=== PATIENT | female | born 2000 ===

== ENCOUNTER 2023-09-15 19:01 | Inpatient (IN) | payer MEDICAID, OTHER, SELFPAY ==
[2023-09-15 16:59] VITALS: BP 135/104
--- NOTE | 2023-09-15 17:06 | ED.GENMED ---
History of Present Illness
General
Chief Complaint: Withdrawal Symptoms
Source: patient
Exam Limitations: none
Time Seen by Provider: 09/15/23 17:02
History of Present Illness
History of Present Illness:
See MDM
Past History
Past History
ED Past Medical History: None
ED Past Surgical History: None
Social History
Tobacco: Non-smoker
Alcohol: None
Drug: Cocaine, Narcotics and IVDA
Phy Exam
Physical Exam
Physical Exam:
See MDM
Scores
Withdrawal Assessment of Alcohol
Withdrawal Assessment Completed?: Yes
Nausea and Vomiting: Intermittent nausea with dry heaves
Tactile Disturbances: Very mild itching, pins and needles, burning or numbness
Tremor: No tremor
Auditory Disturbances: Not present
Paroxysmal Sweats: No sweat visible
Visual Disturbances: Not present
Anxiety: No anxiety, at ease
Headache, Fullness in Head: Very mild
Agitation: Normal activity
Orientation and clouding of sensorium: Oriented and can do serial additions
Total CIWA Score: 6
Alcohol Withdrawal Medication Recommendation: Equal to MSAS Score 0-4. Monitor & re-assess q2hrs, NO MEDICATION NEEDED
Course
Orders/Labs/Results
Orders:
Orders
09/15/23 17:03
Electrocardiogram (*1) Urgent
Reason for Study: Tachycardia
EKG- Treatment ONCE
09/15/23 17:05
0.9% Sodium Chloride 1000 ml [Nss] 1,000 ml IV BOLUS
Lorazepam [Ativan] 2 mg IV NOW STA
Ondansetron Injectable [Zofran] 4 mg IV NOW STA
Test Result ONCE
09/15/23 17:09
Complete Blood Count/With Diff Urgent
Comprehensive Metabolic Panel Urgent
HCG, Serum Qualitative Screen Urgent
09/15/23 18:17
Lorazepam [Ativan] 1 mg PO NOW STA
09/15/23 18:18
Add On- LAB Urgent
Tests Added?: Alcohol
Urine Drug Abuse Screen Urgent
Abnormal Lab Results
09/15/23
17:09
WBC 15.7 H 10^3/uL
(4.8-10.8)
RBC 5.80 H 10^6/uL
(4.20-5.40)
MCV 78.3 L fL
(81.0-99.0)
MCH 26.7 L pg
(27.0-31.0)
RDW 20.1 H %
(11.5-14.5)
Plt Count 618 H 10^3/uL
(130-400)
Abs Immat Gran (auto) 0.1 H 10^3/uL
(0-0.05)
Absolute Neuts (auto) 13.3 H 10^3/uL
(1.4-6.5)
Absolute Monos (auto) 0.8 H 10^3/uL
(0.1-0.6)
Neutrophils % 85.0 H %
(42.2-75.2)
Lymphocytes % 9.2 L %
(20.5-51.1)
Chloride 93 L mmol/L
(98-107)
BUN 33 H mg/dl
(7-17)
Glucose 115 H mg/dl
(70-99)
Calcium 11.6 H mg/dl
(8.4-10.2)
AST 45 H U/L
(14-36)
Total Protein 11.0 H g/dl
(6.3-8.2)
Albumin 5.8 H g/dl
(3.5-5.0)
09/15/23 17:09
09/15/23 17:09
Vital Signs
Initial and Last Documented VS:
Initial Vital Signs
Temp Pulse Resp BP Pulse Ox
99.8 F 135 30 135/104 100
09/15/23 16:59 09/15/23 16:59 09/15/23 16:59 09/15/23 16:59 09/15/23 16:59
Last Documented Vital Signs
Temp Pulse Resp BP Pulse Ox
99.8 F 127 18 122/76 100
09/15/23 16:59 09/15/23 18:04 09/15/23 18:00 09/15/23 18:04 09/15/23 18:04
MDM/Problems Addressed
Differential Diagnosis Includes:
HPI and MDM Narrative:
23-year-old female presenting from [facility] for evaluation of withdrawal symptoms. Patient states she recently used IV heroin and smoked crack and cocaine. Patient also admits to alcohol use but denies any recent alcohol
use. Patient complains of nausea and palpitations. Patient states she has gone through withdrawal before
On arrival, patient appears stoic. She does not show any significant distress but she is tachycardic. She is cachectic and disheveled
Patient given IM Zofran by EMS for nausea. EKG on arrival shows tachycardia with QTc. Will avoid Zofran. Will start with IV fluids hide IV Ativan
Physical exam
General: Sitting in bed and appears comfortable. Disheveled and cachectic
HEENT: protecting airway. Dry mucous membranes
Neck: IV injection sites to base of anterior neck bilaterally. Supple
CV: No evidence of cyanosis. Tachycardic. No murmur auscultated
Resp: No accessory muscle use. Lungs clear
Abd: Non-distended
Extremities: No deformities
Neuro: alert
Psych: Flat affect
Skin: Track cazares noted. No cellulitis noted
Problems Addressed including Acute and Chronic Conditions affecting care:
1. Withdrawal symptoms
Acuity: acute
Prognosis: unstable
Details: Will give IV Ativan
2. Dehydration
Acuity: acute
Prognosis: stable
Details: Will give IV fluids
3. Prolonged QT
Acuity: acute
Prognosis: stable
Details: Will obtain basic blood work and check EKG once tachycardia resolved
Updates
On multiple reassessments, patient continues to lie in bed and seems somewhat stoic. Patient developing intermittent vomiting while in the emergency department. Patient requiring additional doses of Ativan. After IV fluids, patient persistently
tachycardic. Will admit
Differential Diagnosis (but not limited to): Drug withdrawal, dehydration, cachexia
Testing considered: D-dimer but no clinical signs of DVT
Drug therapy (if applicable): OTC meds, please see d/c instruction regarding Rx drugs
Amount and/or Complexity of Data Reviewed
Clinical info obtained from: Patient
External data reviewed: N/A
Labs I independently reviewed (but not limited to): Leukocytosis, likely reactive
Radiology: N/A
Pulse Ox: not hypoxic
EKG independently reviewed: Sinus tachycardia, normal axis, no STEMI
Utilization Manager: sinus tachycardia
Critical Care: N/A
Risk of Complication:
Social Determinants of health: Poor social support
Discussed with other providers: Hospitalist
Escalation of Care includes Admit/Obs: Given the persistent tachycardia and withdrawal symptoms, will admit
Occasional wrong word or 'sound a like' substitutions may have occurred due to the inherent limitations of voice recognition software. Read the chart carefully and recognize, using context, where substitutions have occurred.
*Critical Care Note
Total Time (30-74mins, 75-104mins- exclusive of procedures): Not Applicable
ED Attending Note
-
Portions of this chart may have been created with voice recognition software.� Occasional wrong word or��sound alike� substitutions may have occurred due to the inherent limitations of voice recognition software.
Discharge Plan
Departure
Patient Disposition: Admit
Date of Disposition: 09/15/23
Time of Disposition: 18:20
Admit to: Telemetry
Presentation/result/management discussed w/ accepting MD/DO: Hospitalist
Discharge Problem:
Drug withdrawal, Prolonged QT interval, Chronic malnutrition
Referrals:
[facility] [Family Provider] -
Interventions
Interventions:
*Risk Screen - Suicide Last Done: 09/15/23 16:59
*General Assessment Last Done: 09/15/23 16:59
*Neglect/Abuse Screening Last Done: 09/15/23 16:59
*ED COVID-19 Vaccine History Last Done: 09/15/23 16:59
ED- Neurological Assessment Last Done: 09/15/23 17:27
ED-Psychological Assessment Last Done: 09/15/23 17:27
[2023-09-15] MEDS: NSS 1000 IV ×2 (17:18→20:27)
[2023-09-15] MEDS: ATIVAN 2 MG IV (17:19)
[2023-09-15 17:25] LABS: % Basophils 0.3 % (0-2); % Immature Granulocytes 0.3 % (0-0.5); % Lymphocytes 9.2 % (20.5-51.1); % Monocytes 5.2 % (1.7-9.3); Absolute Immature Granulocytes 0.1 10^3/uL (0-0.05); Absolute Lymphocytes 1.5 10^3/uL (1.2-3.4); Absolute Monocytes 0.8 10^3/uL (0.1-0.6); Absolute Neutrophils 13.3 10^3/uL (1.4-6.5); Hematocrit 45.4 % (37.0-47.0); Hemoglobin 15.5 g/dL (12.0-16.0); Mean Corp Hgb Conc. 34.1 g/dL (33.0-37.0); Mean Corpuscular Hgb 26.7 pg (27.0-31.0); Mean Corpuscular Volume 78.3 fL (81.0-99.0); Nucleated Red Blood Cells % 0 %; Red Cell Dist. Width 20.1 % (11.5-14.5); White Blood Cell Count 15.7 10^3/uL (4.8-10.8)
[2023-09-15 17:35] LABS: HCG, Serum Qualitative Screen Negative
[2023-09-15 17:38] LABS: ALT (SGPT) 26 U/L (0-35); AST (SGOT) 45 U/L (14-36); Albumin 5.8 g/dl (3.5-5.0); Alkaline Phosphatase 100 U/L (38-126); Blood Urea Nitrogen 33 mg/dl (7-17); Calcium 11.6 mg/dl (8.4-10.2); Carbon Dioxide 30 mmol/L (22-30); Chloride 93 mmol/L (98-107); Glucose 115 mg/dl (70-99); Potassium 4.4 mmol/L (3.5-5.1); Sodium 139 mmol/L (135-145); Total Bilirubin 1.1 mg/dl (0.2-1.3); eGFR > 60.00
[2023-09-15 17:42] LABS: Mean Platelet Volume 9.5 fL (7.4-10.4)
[2023-09-15 17:48] LABS: Platelet Count 618 10^3/uL (130-400)
[2023-09-15 18:04] VITALS: BP 122/76
--- NOTE | 2023-09-15 18:25 | PHANOTE ---
med rec note patient new to [facility] and has no medication there, no ecw, no pdmp and pharmacy records
--- NOTE | 2023-09-15 18:42 | HPS.HSE ---
Addendum entered and electronically signed by Bruce New MD 09/16/23 07:48:
I saw and examined the patient.
The FIREWOOD CUTTER's note was reviewed and I agree with the note.
23-year-old female brought by [facility] staff for medical clearance. Patient was just picked up earlier in the day and was felt to having withdrawal symptoms with nausea and vomiting reported. Patient had minimal blood in
the vomitus. During my visit patient awake although clearly under influence of substance. Able to provide history but reliability cannot be sure. Patient does state of using Xylazine/fentanyl/heroin/crack cocaine. Patient uses IV heroin and
injects herself and neck veins. Last dose was 2 days back, urine drug screen is pending at this time. Patient is tachycardic although denies any palpitation/chest pain/shortness of breath.
HEENT: No pallor, cyanosis, or jaundice.
NECK: Supple. No JVD. injection zaheer, no cellulitis/wound
RESPIRATORY: Lungs clear to auscultation.
CVS: S1, S2, tachycardic, no murmur
ABDOMEN: Soft, non-tender. No distension. BS+/normal.
EXTREMITIES: No peripheral cyanosis or edema.
REVENUE INTEGRITY ANALYST: Alert, oriented. No focal deficits.
Multiple substance abuse -Xylazine/fentanyl/heroin/cocaine
IV herion use
- start on COWS protocol with buprenorphine dosing per protocol
- prn ativan per anxiety
- Prolonged QTc cannot use Zanaflex use clonidine
- admit to IMU
Sinus tachycardia
Prolonged QTc
-Avoid any QTc prolonging medication
-Maintain on IV fluid
-Tachycardia likely related from drug withdrawal
Nausea/vomiting
-Minimal blood reported in vomitus and may have minor Carisa-García tear
-Monitor hemoglobin
-Tigan as needed for nausea vomiting (prolonged QTc)
-Clear liquid diet for tonight
Full code
Original Note:
Family Physician
-
Family Physician: Facility [facility]
Chief Complaint
-
Withdrawal
History of Present Illness
Patient is a 23-year-old female with [facility] with concern for withdrawal symptoms. She was just picked up off the streets earlier today. Nurse was evaluating her for intake and noted significant withdrawal symptoms which
prompted them to bring her to the emergency department for evaluation. Patient admits to nausea and palpitations. She admits to using multiple recreational drugs including IV heroin/fentanyl, and smoking crack cocaine. Denies any prior history of
withdrawal seizure.
Medical History
Past Medical History
Past Medical History: Reports Other
Additional Past Medical History:
Substance Abuse Disorder
Past Surgical History: Reports None
Social History
Tobacco: Non-smoker
Alcohol: None
Drug: Cocaine, Narcotics and IVDA
Family History
Family History: Unable to Obtain
Allergies / Home Medications
Allergies reflects when Allergies were last updated in [facility].
Home Medications with original date entered in [facility]
Allergy/Medication List:
Allergies
Allergy/AdvReac Type Severity Reaction Status Date / Time
sulfamethoxazole Allergy Unknown Verified 09/15/23 16:59
[From Bactrim]
trimethoprim [From Bactrim] Allergy Unknown Verified 09/15/23 16:59
Home Medications
No Meds [No Current Medications] 09/15/23
Review of Systems
-
Unable to obtain full review of systems at this time due to: Acuity
Constitutional: Denies Fever
Respiratory: Denies Cough or Trouble Breathing
Cardiac: Denies Chest Pain or Palpitations
Abdomen/GI: Reports Nausea; Denies Abdominal Pain
Physical Exam
Vital Signs
Vital Signs
Temp Pulse Resp BP Pulse Ox
99.8 F 135 19 122/76 100
09/15/23 16:59 09/15/23 18:30 09/15/23 18:30 09/15/23 18:04 09/15/23 18:04
Physical Exam
General: Cachectic and Other (Appears disheveled )
HEENT: NormoCephalic, Anicteric, Atraumatic and Other (Slightly dry mucous membranes)
Respiratory: Clear and Non Labored Respirations
Cardiac: S1/S2, Regular Rhythm and Tachycardia; No Murmur
GI: Soft and Non Tender
Rectal: Deferred by Provider
Skin: Warm, Dry and Other (Injection sites evidence bilateral neck )
Neuro: Awake, Alert and Nonfocal/grossly intact
Psych: Other (Flat Affect, only minimally interactive)
Laboratory Results
-
09/15/23 17:09
09/15/23 17:09
Laboratory Results
Total Bilirubin 1.1 mg/dl (0.2-1.3) 09/15/23 17:09
AST 45 U/L (14-36) H 09/15/23 17:09
ALT 26 U/L (0-35) 09/15/23 17:09
Alkaline Phosphatase 100 U/L (38-126) 09/15/23 17:09
Data Reviewed
-
Lab Data: Labs Reviewed by me
Impression/Plan
-
Poly-Substance Abuse with Withdrawal
-Patient reports last usages of illicit drugs two days ago
-Await urine drug screen
-Continue opioid withdrawal protocol
-Continue Ativan prn
-Allow clear liquids
Prolonged QT
-Avoid QTC prolonging medication
-Check ECG Daily
Tachycardia, likely related to volume depletion
-Continue IVFs
Malnutrition
-Consult Dietary
DVT proph: Lovenox
Code Status: Full Code
[2023-09-15 19:31] LABS: Alcohol None Detected
[2023-09-15 19:40] LABS: Magnesium 2.5 mg/dl (1.6-2.3)
[2023-09-15 19:42] LABS: Alcohol None Detected
[2023-09-15 19:49] VITALS: BMI 16.6
[2023-09-15 20:00] VITALS: BP 149/91
[2023-09-15] MEDS: TYLENOL 650 MG PO (20:38)
[2023-09-15] MEDS: SUBUTEX 8 MG SL ×2 (20:40→21:53)
[2023-09-15 22:00] VITALS: BP 148/85
--- NOTE | 2023-09-15 22:00 | PTCARENOTE ---
Pt admitted to IMU. AAOx3, restless, anxious, forgetful at times and uncooperative.Periods of drowsiness Febrile. COW score 17. Pt was given Tylenol PO. ST w/ prolong Qt in the monitor. Lung sounds are diminished at the bases, Sao2 98% RA.
tachypneic and occasional nonproductive dry cough. Nausea and vomit ~ [address] NPO. High risk of aspiration. Will cont w/ tx plan.
[2023-09-15 23:19] VITALS: BP 146/91
[2023-09-15] MEDS: CATAPRES 0.100000000000000006 MG PO (23:20)
[2023-09-16] VITALS (12 sets, daily range): BP systolic 129–148; BP diastolic 79–101; BMI 16.6
[2023-09-16] MEDS: NSS (PRESERVATIVE FREE) 0.5 ML IV ×2 (00:30→05:45)
[2023-09-16] MEDS: ATIVAN 1 MG IV ×3 (00:30→22:15)
[2023-09-16 04:23] LABS: Hematocrit 38.1 % (37.0-47.0); Hemoglobin 12.7 g/dL (12.0-16.0); Mean Corp Hgb Conc. 33.3 g/dL (33.0-37.0); Mean Corpuscular Hgb 26.3 pg (27.0-31.0); Mean Corpuscular Volume 78.9 fL (81.0-99.0); Mean Platelet Volume 9.6 fL (7.4-10.4); Platelet Count 446 10^3/uL (130-400); Red Blood Cell Count 4.83 10^6/uL (4.20-5.40); Red Cell Dist. Width 19.5 % (11.5-14.5); White Blood Cell Count 10.6 10^3/uL (4.8-10.8)
[2023-09-16 05:21] LABS: ALT (SGPT) 21 U/L (0-35); AST (SGOT) 38 U/L (14-36); Albumin 4.8 g/dl (3.5-5.0); Alkaline Phosphatase 78 U/L (38-126); Blood Urea Nitrogen 29 mg/dl (7-17); Calcium 9.6 mg/dl (8.4-10.2); Carbon Dioxide 25 mmol/L (22-30); Chloride 100 mmol/L (98-107); Direct Bilirubin 0.2 mg/dl (0.0-0.4); Estimated Creatinine Clearance 93 ml/min; Glucose 89 mg/dl (70-99); Magnesium 2.3 mg/dl (1.6-2.3); Potassium 3.8 mmol/L (3.5-5.1); Sodium 136 mmol/L (135-145); Total Bilirubin 1.2 mg/dl (0.2-1.3); Total Protein 8.3 g/dl (6.3-8.2); eGFR > 60.00
[2023-09-16 05:41] LABS: Fentanyl, Urine Positive (Negative)
[2023-09-16] MEDS: NSS 1000 IV ×2 (05:46→18:03)
[2023-09-16] MEDS: CATAPRES 0.100000000000000006 MG PO ×3 (05:46→18:03)
[2023-09-16 05:58] LABS: Amphetamines Negative (Negative); Barbiturates Negative (Negative); Benzodiazepines Positive (Negative); Buprenorphine Positive (Negative); Cocaine Positive (Negative); Methadone Negative (Negative); Methamphetamines Negative (Negative); Opiates Positive (Negative)
[2023-09-16 05:59] LABS: Marijuana Negative (Negative); Phencyclidine Negative (Negative); Tricyclic Antidepressants Negative (Negative)
--- NOTE | 2023-09-16 08:59 | W.PN.HOSP.TC ---
Today's Communication/Plan
-
see note
Assessment / Plan
Assessment / Plan
Multiple substance abuse -Xylazine/fentanyl/heroin/cocaine
IV heroin use
-Urine drug screen positive for opiates/cocaine/fentanyl. Alcohol negative.
-start on COWS protocol with buprenorphine dosing per protocol
-prn ativan per anxiety
-Prolonged QTc cannot use Zanaflex. use clonidine
-COWS protocol reviewed overnight and remains high score of 14-17 range.
Sinus tachycardia
Prolonged QTc - resolved
-QTc was came down to 436 ms
-Avoid any QTc prolonging medication
-Maintain on IV fluid
-Tachycardia likely related from drug withdrawal
Nausea/vomiting -resolved
-Minimal blood reported in vomitus and may have minor Carisa-García tear
-Tigan as needed for nausea vomiting (prolonged QTc)
-Advance to regular diet
Leukocytosis
Thrombocytosis
Elevated total protein
Hypercalcemia
-Component of volume concentration, improved after IV fluid resuscitation
DVT prophylaxis -Lovenox
Full code
Ongoing drug withdrawal, continue monitoring in IMU for another 24 hours.
Time spent : 53 mins
Anticipated Discharge: Within 24 hours
Subjective/Interval History
-
Date of Service: September 16, 2023
Resting comfortably in bed
Denies having any issues overnight
No nausea or vomiting
Objective Data
-
Labs:
Laboratory Results
09/16/23
04:04
WBC 10.6
Hgb 12.7
Hct 38.1
Plt Count 446 H D
Sodium 136
Potassium 3.8
Chloride 100
Carbon Dioxide 25
BUN 29 H
Creatinine 0.6
Glucose 89
Calcium 9.6 D
Total Bilirubin 1.2
AST 38 H
ALT 21
Alkaline Phosphatase 78
Vital Signs:
Vital Signs
Temp Pulse Resp BP Pulse Ox
98.6 F 120 26 129/98 96
09/16/23 07:45 09/16/23 05:46 09/16/23 05:42 09/16/23 05:46 09/16/23 05:42
I&O
09/15/23 09/16/23 09/17/23
06:59 06:59 06:59
Intake Total 1580 / 1580
Balance 1580 / 1580
Review of Systems
-
Respiratory: Reports No Symptoms
Cardiac: Reports No Symptoms
Abdomen/GI: Reports No Symptoms
Physical Exam
-
General: Cachectic; Negative Appears in Distress
HEENT: Negative Oxygen
Neuro: Awake, Alert and Oriented
--- NOTE | 2023-09-16 10:11 | CM ---
CM reviewed medical records. Patient from [facility] and is currently in custody. Plan to return to [facility] on discharge.
PLAN: [facility].
[2023-09-16] MEDS: SUBUTEX 16 MG SL (10:53)
--- NOTE | 2023-09-16 14:41 | PTCARENOTE ---
Rec'd pt this AM. Reports improvement to her w/d symptoms. Ambulated to bathroom and voided large amt of yellow urine. resting comfortably at this time. Ate 100% of lunch, no nausea or vomitting.
[2023-09-16] MEDS: LOVENOX 40 MG SC (18:03)
[2023-09-17] VITALS: BP 125/81
[2023-09-17] MEDS: CATAPRES 0.100000000000000006 MG PO ×2 (00:33→05:24)
[2023-09-17 02:00] VITALS: BP 117/91
[2023-09-17 04:00] VITALS: BP 134/82
[2023-09-17] MEDS: NSS 1000 IV (05:24)
[2023-09-17 06:00] VITALS: BP 127/86
[2023-09-17] MEDS: ATIVAN 1 MG IV ×2 (06:01→10:02)
[2023-09-17 06:10] LABS: Urine Albumin Negative (Neg - Trace); Urine Bilirubin Negative (Negative); Urine Character Slightly Cloudy (Clear); Urine Color Yellow; Urine Glucose Negative (Negative); Urine Ketone Negative (Negative); Urine Leukocyte 2+ (Negative); Urine Nitrite Negative (Negative); Urine Occult Blood Negative (Negative); Urine Urobilinogen Negative (Neg - 1+)
[2023-09-17 06:21] LABS: Urine Squamous Cell >30 /LPF (Few)
[2023-09-17 06:37] LABS: Urine Bacteria Many (Negative); Urine White Cell 60-70 /HPF (0-5)
[2023-09-17 08:00] VITALS: BP 118/79
--- NOTE | 2023-09-17 09:02 | PTCARENOTE ---
Pt with + MRSA screen in nares. Isolation changed to Contact. Notified Dr. Brannon via TT
[2023-09-17] MEDS: SUBUTEX 16 MG SL (09:42)
--- NOTE | 2023-09-17 09:51 | W.PN.HOSP.TC ---
Today's Communication/Plan
-
d/c
Assessment / Plan
Assessment / Plan
pt is a 23 year old female
Multiple substance abuse--Xylazine/fentanyl/heroin/cocaine--IV heroin use--stable for d/c back to senior care-- on all oral meds--Urine drug screen positive for opiates/cocaine/fentanyl-- Alcohol negative---on COWS protocol with buprenorphine dosing per
protocol--prn ativan per anxiety--Prolonged QTc cannot use Zanaflex. use clonidine
Sinus tachycardia--Prolonged QTc - resolved -QTc was came down to 436 ms-Avoid any QTc prolonging medication-Tachycardia likely related from drug withdrawal
Nausea/vomiting -resolved -Minimal blood reported in vomitus and may have minor Carisa-García tear-Tigan as needed for nausea vomiting (prolonged QTc)-Advance to regular diet
Leukocytosis/Thrombocytosis/Elevated total protein/Hypercalcemia--Component of volume concentration, improved after IV fluid resuscitation
DVT prophylaxis -Lovenox
Full code
ok for d/c
Anticipated Discharge: Today
Subjective/Interval History
-
Date of Service: September 17, 2023
pt without c/o
Objective Data
-
Vital Signs:
max temp for 24 hours
09/16/23
23:08
Temp 99.2 F
Vital Signs
Temp Pulse Resp BP Pulse Ox
96 F L 74 16 117/91 98
09/17/23 07:30 09/17/23 02:00 09/17/23 02:00 09/17/23 02:00 09/16/23 13:24
I&O
09/16/23 09/17/23 09/18/23
06:59 06:59 06:59
Intake Total 1580 / 1580 3720 / 3720
Balance 1580 / 1580 3720 / 3720
Review of Systems
-
All other systems: Reviewed and negative
Physical Exam
-
General: Well Developed, Well Nourished and No Apparent Distress
HEENT: Normocephalic and Atraumatic; Negative Oxygen
Respiratory: Clear to Auscultation; Negative Wheezes or Rhonchi
Cardiac: Regular Rhythm and S1/S2; Negative Murmur
GI: Soft, Nontender, Nondistended and Normal Bowel Sounds
Musculoskeletal: No Clubbing, No Cyanosis and No Edema
Skin: Warm and Dry
Neuro: Awake and Alert
--- NOTE | 2023-09-17 09:52 | CM ---
Patient seen at bedside with Physician. Patient from [facility]. CM called to [facility] and per nurse at Medical number ([facility]) [phone]/fax [phone]. Per nurse if the phone for the [facility] does not work it is because someone is on the
phone and they are trying to correct the problem. Backup number [phone]. Please fax the transition of care or the discharge planning needs.
Plan; return to [facility]way with transportation from [facility]-way.
[2023-09-17 10:00] VITALS: BP 123/83
[2023-09-17] MEDS: NSS (PRESERVATIVE FREE) 0.5 ML IV (10:02)
--- NOTE | 2023-09-17 10:25 | PTCARENOTE ---
Pt scheduled for d.c. today back to long term. Report given to JUNIE Brantley. Guards at bedside notified.
--- NOTE | 2023-09-18 08:11 | W.DCSUMMARY ---
Discharge Summary
Discharge Data
Date of Admission: 09/15/23
Date of Discharge: 09/17/23
-
Pending Results: No
Hospital Course
Primary care physician : at [facility]
Principal Discharge diagnosis : drug withdrawal, Sinus tachycardia/nausea/vomiting, leukocytosis/thrombocytosis/elevated total protein/hypercalcemia
Chronic Discharge diagnosis : Multiple substance abuse
Hospital Course : Patient was a 23-year-old female who was at the [facility] with concern for withdrawal symptoms. Apparently, she was picked up from the street earlier on the day of admission. Present nurse noted
significant withdrawal symptoms which prompted them to bring her to the emergency department. Patient admitted to nausea and palpitations. She also admitted to using multiple recreational drugs including IV heroin and fentanyl as well as smoking
crack cocaine. Patient was admitted.
Problem #1: Drug withdrawal. Patient was admitted and started on the opioid withdrawal protocols. She admitted to using xylazine/fentanyl/heroin/cocaine. Urine drug screen was positive for opiates/cocaine/fentanyl. Her alcohol level was
negative. Symptomatic treatment was provided. Patient is stable for discharge back to the skilled nursing.
Problem # 2: Sinus tachycardia/nausea/vomiting, leukocytosis/thrombocytosis/elevated total protein/hypercalcemia. These medical issues were related to her withdrawal symptoms. They did improve with IV hydration and appropriate medical management.
Patient is stable for discharge back to the skilled nursing at this time. If there are any questions regarding this dictation or her hospital stay, please not hesitate to call. Our office number is [phone].
Discharge Plan
-
Patient Disposition: Senior Living
Discharge Diagnosis/Procedures: Multiple drugs of abuse with substance abuse, nausea/vomiting/sinus tachycardia/leukocytosis/thrombocytosis/elevated total protein/hypercalcemia all resolved
Condition: Good
Diet: As tolerated and Regular
Activity: As tolerated
Driving Restrictions: As prior to admission
Bathing Restrictions: None
Referrals:
[facility] [Family Provider] - in less than 1 week
Prescriptions:
New
clonidine HCl 0.1 mg Tablet
0.1 mg PO Q12H Qty: 10 0RF
acetaminophen 325 mg Tablet
650 mg PO Q4HPRN PRN (Reason: mild pain/ fever>100.5F) Qty: 0 0RF
calcium carbonate [Antacid (calcium carbonate)] 200 mg calcium (500 mg) Tablet,Chewable
200 mg PO Q6HPRN PRN (Reason: indigestion) Qty: 0 0RF
buprenorphine HCl 8 mg Tablet, Sublingual
16 mg sublingual DAILY Qty: 14 0RF
Rx Instructions:
wean as tolerated
Discharge Orders:
Discharge Patient (As Directed); Ordered 09/17/23
Ordered By: Elyse Brannon
Discharge Date and Time
Discharge Date/Time: 09/17/23 10:51
--- NOTE | 2023-09-18 09:55 | W.PN.UPDATE ---
Update Note
Progress Note Update
Just got informed that patient's blood culture from 09/15/2023, 1 of 2 bottles is showing gram-negative bacilli--spoke with BRIAN Sanchez ([phone]) at the [facility] regarding these findings. She is going to go evaluate the patient. I did explain that
the urine cultures is pending as well. I did offer for the patient to return to the hospital for further investigation. She will decide on what ever if she wants to proceed with.
--- NOTE | 2023-09-20 14:39 | W.PN.UPDATE ---
Update Note
Progress Note Update
urine culture with E coli- faxed report to [phone]
--- NOTE | 2023-09-25 16:20 | W.PN.UPDATE ---
Update Note
Progress Note Update
Spoke with Gt godwin at [facility] regarding blood culture with Fuscobacterium species
He will have immediate lab work including blood cultures repeated on the patient who is currently still in custody
Lab report was faxed to [phone]
== END 2023-09-17 10:51 | DRG 896 ==
LOC: IMU 19:01
PROVIDERS: Physician Assistant Medical; ADMITTING PHYSICIAN Hospitalist; ATTENDING PHYSICIAN Internal Medicine; EMERGENCY PHYSICIAN Student in an Organized Health Care Education/Training Program
DX: F19.239 Other psychoactive substance dependence with withdrawal, unspecified (principal); K22.6 Gastro-esophageal laceration-hemorrhage syndrome; E46 Unspecified protein-calorie malnutrition; R64 Cachexia; Z68.1 Body mass index [BMI] 19.9 or less, adult; R00.0 Tachycardia, unspecified; R11.2 Nausea with vomiting, unspecified; E86.0 Dehydration; D75.839 Thrombocytosis, unspecified; E83.52 Hypercalcemia; D72.829 Elevated white blood cell count, unspecified; R94.31 Abnormal electrocardiogram [ECG] [EKG]; Z88.1 Allergy status to other antibiotic agents; Z88.2 Allergy status to sulfonamides
CPT/HCPCS: 71045; 80053; 80306; 80307; 81003; 81015; 82077; 82248; 83735; 84703; 85025; 85027; 87040; 87070; 87077; 87086; 87147; 87186; 87205; 93005; 96361; 96374; 96375; 99285; 99406

== ENCOUNTER 2023-10-06 09:53 | Emergency (ER) | payer OTHER, SELFPAY ==
[2023-10-06 09:56] VITALS: BP 138/85
--- NOTE | 2023-10-06 10:21 | ED.GENMED ---
History of Present Illness
General
Chief Complaint: Foreign Body Removal
Source: patient
Exam Limitations: none
Time Seen by Provider: 10/06/23 09:58
Nursing documentation reviewed up to this point in time: agreed with
Travel History
Have you had any contact with someone who has COVID-19?: No
Do you have any symptoms of coronavirus? Fever > 100 degrees, chills, cough, shortness of breath, sore throat, loss of taste or smell, muscle aches, or headache?: No
History of Present Illness
History of Present Illness:
Patient is a 23-year-old female brought from [facility] for medically Evaluation. [facility] Home guards state that patient apparently had drugs vaginally and did remove them prior to arrival however patient was sent for further
exam to ensure there are no further foreign bodies vaginally. Patient presents awake alert. She does admit to putting a plastic container of drugs vaginally but reports she got her period and was able to remove them prior to arrival. She denies
any rectal drugs. Patient is consenting to having vaginal exam.
She denies any abdominal pain nausea vomiting.
Past History
Past History
ED Past Medical History: None
ED Past Surgical History: None
Social History
Tobacco: Non-smoker
Alcohol: None
Drug: Cocaine, Narcotics and IVDA
Review of Systems
Review of Systems
Allergies reviewed?: Yes
All Other Systems: ROS reviewed and negative except as documented in HPI and ROS
Constitutional: Reports no symptoms
ABD/GI: Reports no symptoms; Denies abdominal pain, nausea or vomiting
: Reports other (pt admits to having placed drugs vaginally yesterday but removed them today; pt currently has menses )
Musculoskeletal: Reports no symptoms
Skin: Reports no symptoms
Neurological: Reports no symptoms
Psychiatric: Reports no symptoms
Phy Exam
General Physical Exam
General Presentation: no apparent distress
General age: appears stated age
General Skin: warm and dry
General Habitus: other (thin female )
General Mental: alert
General Hydration: appears well hydrated
Gastrointestinal Exam
Gastrointestinal Exam: non tender and soft
Genitourinary Exam Female
Exam Female: other (Speculum exam done :no foreign body visualized; small amount of blood in vaginal(patient has menses currently))
Neurological Exam
Neurological Exam: alert and oriented x3
Musculoskeletal Exam
Musculoskeletal Exam: full ROM
Skin Exam
Skin Exam: normal color and warm/dry
Psychiatric Exam
Psychiatric Exam: normal mood/affect
Course
Vital Signs
Initial and Last Documented VS:
Initial Vital Signs
Temp Pulse Resp BP Pulse Ox
98.0 F 100 16 138/85 100
10/06/23 09:56 10/06/23 09:56 10/06/23 09:56 10/06/23 09:56 10/06/23 09:56
Last Documented Vital Signs
Temp Pulse Resp BP Pulse Ox
98.0 F 100 16 138/85 100
10/06/23 09:56 10/06/23 09:56 10/06/23 09:56 10/06/23 09:56 10/06/23 09:56
MDM/Problems Addressed
Differential Diagnosis Includes:
Not limited to foreign body vaginally
MDM/Problems Addressed:
Patient sent from [facility] to ensure the patient has no foreign bodies vaginally. Patient admits to having foreign body 'drugs' vaginally but they came out/removed by her prior to arrival. On exam there is no obvious
foreign body visualized with speculum exam. She is no complaints of pain abdomen soft nontender. Patient denies placing anything rectally.
She has no complaints.
Chronic conditions affecting care:
ivda
*Pulse Oximetry
Patient hypoxic: no
*Critical Care Note
Total Time (30-74mins, 75-104mins- exclusive of procedures): Not Applicable
ED Attending Note
-
Portions of this chart may have been created with voice recognition software.� Occasional wrong word or��sound alike� substitutions may have occurred due to the inherent limitations of voice recognition software.
Discharge Plan
Departure
Patient Disposition: Home (Routine Discharge)
Date of Disposition: 10/06/23
Time of Disposition: 10:20
Patient with high blood pressure during this ER visit?: Yes
Condition: Fair
Covid-19: Not Applicable
Discharge Problem:
Encounter for medical assessment
Prescriptions:
No Action
clonidine HCl 0.1 mg Tablet
0.1 mg PO Q12H Qty: 10 0RF
acetaminophen 325 mg Tablet
650 mg PO Q4HPRN PRN (Reason: mild pain/ fever>100.5F) Qty: 0 0RF
calcium carbonate [Antacid (calcium carbonate)] 200 mg calcium (500 mg) Tablet,Chewable
200 mg PO Q6HPRN PRN (Reason: indigestion) Qty: 0 0RF
buprenorphine HCl 8 mg Tablet, Sublingual
16 mg sublingual DAILY Qty: 14 0RF
Rx Instructions:
wean as tolerated
Referrals:
[facility] [Family Provider] -
Activity Restrictions/Additional Instructions:
Patient was examined and there are no foreign bodies visualized vaginally
Interventions
Interventions:
*Risk Screen - Suicide Last Done: 10/06/23 09:56
*General Assessment Last Done: 10/06/23 09:56
*Neglect/Abuse Screening Last Done: 10/06/23 09:56
*ED COVID-19 Vaccine History Last Done: 10/06/23 09:56
Discharge Date and Time
Print Language: THAI
== END 2023-10-06 10:30 | disposition home or self-care (01) ==
LOC: EMR 09:53
PROVIDERS: EMERGENCY PHYSICIAN Emergency Medicine
DX: Z02.89 Encounter for other administrative examinations (principal)
CPT/HCPCS: 99281